=== PATIENT | male | born 1945 | race African-American/Black ===

== ENCOUNTER 2016-12-02 16:24 | Emergency (ER) | payer MEDICARE, OTHER ==
[~2016-12-02] VITALS: Ht 180.3 cm; Wt 75.0 kg
[2016-12-02 16:41] VITALS: Ht 180.3 cm; Wt 75.0 kg
[2016-12-02] MEDS ORDERED: morphine 2 MG INJ IV STA (16:43)
[2016-12-02] MEDS ORDERED: ASPIRIN 81 MG TAB PO STA (16:43)
[2016-12-02 16:53] LABS: ABNORMAL IP MESSAGE 1; BASOPHILS % 0.8 % (0.0-2.0); EOSINOPHILS # 0.2 10^3/ul (0.0-0.5); EOSINOPHILS % 4.5 % (0.0-7.0); HEMATOCRIT 40.3 % (42.0-52.0); HEMOGLOBIN 12.5 g/dl (14.0-18.0); LYMPHOCYTES # 1.5 10^3/ul (0.8-2.9); LYMPHOCYTES % 28.2 % (15.0-51.0); MEAN CORPUSCULAR HEMOGLOBIN 24.6 pg (29.0-33.0); MEAN CORPUSCULAR VOLUME 79.3 fl (82.0-101.0); MONOCYTE # 0.6 10^3/ul (0.3-0.9); MONOCYTES % 10.8 % (0.0-11.0); NEUTROPHILS % 55.5 % (39.0-77.0); PLATELET COUNT 152 10^3/UL (140-415); POSITIVE DIFF @See below; RED BLOOD COUNT 5.08 10^6/ul (4.70-6.10); RED CELL DISTRIBUTION WIDTH 12.9 % (11.5-14.5); WHITE BLOOD COUNT 5.3 10^3/ul (4.8-10.8)
[2016-12-02 17:16] LABS: INR 1.06; PROTIME 13.8 Sec (12.2-14.2); PT RATIO 1.1
[2016-12-02 17:17] LABS: PARTIAL THROMBOPLASTIN TIME 31.3 Sec (25.0-35.0)
[2016-12-02 17:20] LABS: ANION GAP 9 (8-16); BLOOD UREA NITROGEN 14 mg/dl (7-20); CALCIUM 8.8 mg/dl (8.4-10.2); CARBON DIOXIDE 31 mmol/L (21-31); CHLORIDE 97 mmol/L (97-110); GLUCOSE 85 mg/dl (70-220); POTASSIUM 4.1 mmol/L (3.5-5.1); SODIUM 133 mmol/L (135-144)
[2016-12-02 17:29] LABS: B-TYPE NATRIURETIC PEPTIDE 53 PG/ML (0-125)
--- NOTE | 2016-12-02 17:33 | RADRPT ---
PROCEDURE: XR Chest. CLINICAL INDICATION: Chest pain. TECHNIQUE: Portable AP semi - erect view of the chest was obtained. COMPARISON: None. FINDINGS: The cardiac silhouette is mildly enlarged. Rounded mass in the left upper lobe is approximately 4 x 3.6 cm concerning for primary pulmonary malignancy. Hyperinflation of the lungs and flattening of the diaphragm is compatible with chronic obstructive pulmonary disease. There is no evidence for pl eural effusion, pneumothorax or pulmonary vascular congestion. The osseous structures are intact wi th no evidence for acute abnormality. RPTAT:HJJR IMPRESSION: Left upper lobe lung mass of approximately 4 cm concerning for primary pulmonary malignancy superimp osed upon chronic obstructive pulmonary disease. Follow-up evaluation is recommended. Physician Daniele Date Time Electronically viewed and signed by Physician Daniele on 12/02/2016 17:33 /
[2016-12-02 17:38] LABS: TROPONIN-I < 0.012 ng/ml (0.00-0.12)
[2016-12-02] MEDS ORDERED: HALOPERIDOL 5 MG INJ IM ONE (18:00)
[2016-12-02] MEDS ORDERED: TYL500 PO (18:22)
--- NOTE | 2016-12-02 18:52 | ERD ---
ER Documentation Chief Complaint Date/Time DATE: 12/02/16 TIME: 18:38 Chief Complaint R90 CALLED AT ONCOLOGIST OFFICE FOR CHEST PAIN VAGUE ONSET HPI This 71-year-old male was sent to the emergency room for evaluation following a complaint of chest pain. Patient is a demented patient who has known left upper lung cancer. This was the onset of the pain was unknown. He now complains of only some mild lower back pain which she has had for years and occasional forehead pain. He suffered no trauma. He has no shortness of breath , no fevers and chills. ROS All systems reviewed and are negative except as per history of present illness. Medications Home Meds Active Scripts Acetaminophen* (Tylenol*) 500 Mg Tab, 500 MG PO Q6H Y for PAIN, #14 TAB Prov:MARIBELL INFANTE 12/02/16 PMhx/Soc History of Surgery: No (UNKNOWN) Anesthesia Reaction: No Hx Neurological Disorder: Yes (DEMENTIA) Hx Respiratory Disorders: No Hx Cardiac Disorders: Yes (HTN) Hx Psychiatric Problems: Yes (SCHIZOPHRENIA, ANXIETY) Hx Miscellaneous Medical Probl: Yes (ANEMIA) Hx Alcohol Use: No Hx Substance Use: No Hx Tobacco Use: No Smoking Status: Unknown if ever smoked Physical Exam Vitals Vital Signs Date Time Temp Pulse Resp B/P Pulse Ox O2 Delivery O2 Flow Rate FiO2 12/02/16 16:41 98.7 61 18 143/90 100 Physical Exam Const: [] Head: Atraumatic Eyes: Normal Conjunctiva ENT: Normal External Ears, Nose and Mouth. Neck: Full range of motion..~ No meningismus. Resp: Clear to auscultation bilaterally Cardio: Regular rate and rhythm, no murmurs Abd: Soft, non tender, non distended. Normal bowel sounds Skin: No petechiae or rashes Back: No midline or flank tenderness Ext: No cyanosis, or edema Neur: Awake and alert Psych: Normal Mood and Affect Result Diagram: 12/02/16 1635 12/02/16 1635 Results 24 hrs Laboratory Tests Test 12/02/16 16:35 White Blood Count 5.310^3/ul Red Blood Count 5.0810^6/ul Hemoglobin 12.5g/dl Hematocrit 40.3% Mean Corpuscular Volume 79.3fl Mean Corpuscular Hemoglobin 24.6pg Mean Corpuscular Hemoglobin Concent 31.0g/dl Red Cell Distribution Width 12.9% Platelet Count 78540^3/UL Mean Platelet Volume fl Neutrophils % 55.5% Lymphocytes % 28.2% Monocytes % 10.8% Eosinophils % 4.5% Basophils % 0.8% Nucleated Red Blood Cells % 0.0/100WBC Neutrophils # (Manual) 2.910^3/ul Lymphocytes # 1.510^3/ul Monocytes # 0.610^3/ul Eosinophils # 0.210^3/ul Basophils # 0.010^3/ul Nucleated Red Blood Cells # 0.010^3/ul Prothrombin Time 13.8Sec Prothrombin Time Ratio 1.1 INR International Normalized Ratio 1.06 Activated Partial Thromboplast Time 31.3Sec Sodium Level 133mmol/L Potassium Level 4.1mmol/L Chloride Level 97mmol/L Carbon Dioxide Level 31mmol/L Anion Gap 9 Blood Urea Nitrogen 14mg/dl Creatinine 1.00mg/dl Glucose Level 85mg/dl Calcium Level 8.8mg/dl Troponin I < 0.012ng/ml B-Type Natriuretic Peptide 53PG/ML Current Medications Medications (Trade) Dose Ordered Sig/Trevon Route PRN Reason Start Time Stop Time Status Last Admin Dose Admin Aspirin (Aspirin) 162 mg ONCE STAT PO 12/02/16 16:43 12/02/16 16:44 DC 12/02/16 17:05 Morphine Sulfate (morphine) 2 mg ONCE STAT IV 12/02/16 16:43 12/02/16 16:44 DC Haloperidol (Haldol) 5 mg ONCE ONCE IM 12/02/16 18:00 12/02/16 18:01 DC 12/02/16 18:14 Procedures/MDM Patient who is supposedly complaint of chest pain earlier. No chest pain in the ER. Patient does have dementia. Sent with paperwork that show his well- demarcated left upper lung mass which is already known. Otherwise the patient has no elevated troponin. Nonischemic EKG. Patient does have a bifascicular block with ST elevations likely secondary right bundle. I did show the EKG to her circular gang saw operator, Dr. Rucker, who agrees that there is nothing acutely concerning on the EKG. This is consistent with labs. Patient also has no signs of infection. Going to discharge him back with primary care follow-up tomorrow or the next day and strict return precautions. Patient was given aspirin and nitro prior to arrival and was given 162 mg aspirin here is also given 5 mg of Haldol for agitation which calmed him down and did not make him sleep. He is feeling well now and is been monitored in the ER for over 2-1/2 hours. EKG interpretation: Sinus bradycardia, rate of 55, first-degree AV block, bifascicular block, mild ST elevations in leads V3 and V4 that are not concerning for ischemia would likely result of a right bundle branch block, left axis deviation. Chronic monitor interpretation: Sinus bradycardia without arrhythmia Chest x-ray interpretation: Left upper lung mass, otherwise I see no acute process, no infiltrate, no pulmonary edema, no pneumothorax, no fractures. Departure Diagnosis: Primary Impression: Low back pain Additional Impressions: Chest pain Lung mass Condition: Stable Patient Instructions: Chest Pain, Uncertain Cause Additional Instructions: Call your primary care doctor TOMORROW for an appointment during the next 1-2 days. Obtain an appointment for an ECHOCARDIOGRAM. See the doctor sooner or return here if your condition worsens before your appointment time. MARIBELL INFANTE DO Dec 02, 2016 18:51
[2016-12-02] MEDS ORDERED: ACET325T33 PO (18:54)
[2016-12-02] MEDS ORDERED: RISP1TAB3 PO (18:59)
[2016-12-02] MEDS ORDERED: LAMO25TA PO (19:00)
[2016-12-02] MEDS ORDERED: MAGN400O4 PO (19:00)
[2016-12-02] MEDS ORDERED: CLON-379 PO (19:01)
[2016-12-02 19:20] VITALS: BP 149/81; PULSE 70; RESP 18; TEMP 98.7
== END 2016-12-02 19:26 | disposition home or self-care (01) ==
LOC: E/R 16:24
DX: M54.5 Low back pain (principal); R91.8 Other nonspecific abnormal finding of lung field; I10 Essential (primary) hypertension
CPT/HCPCS: 36415; 71010; 80048; 83880; 84484; 85025; 85610; 85730; 93005; 96372; 99285; J1630; J2270

== ENCOUNTER 2017-02-05 12:43 | Inpatient (IN) | payer MEDICARE, OTHER ==
[~2017-02-05] VITALS: Ht 170.2 cm; Wt 65.9 kg
[~2017-02-05 12:43] MED LIST: ACET325T33 PO; CLON-379 PO; LAMO25TA PO; MAGN400O4 PO; RISP1TAB3 PO; TYL500 PO
[2017-02-05] MEDS ORDERED: SOD CHLORIDE 0.9% 1,000 ML IV STA (13:24)
[2017-02-05] MEDS ORDERED: ALBUTEROL 0.5% (NEB) 2.5 MG/0.5 ML AMP INH STA (13:24)
[2017-02-05 14:14] LABS: BASOPHILS % 0.5 % (0.0-2.0); EOSINOPHILS # 0.3 10^3/ul (0.0-0.5); EOSINOPHILS % 5.1 % (0.0-7.0); HEMATOCRIT 42.2 % (42.0-52.0); HEMOGLOBIN 12.9 g/dl (14.0-18.0); LYMPHOCYTES # 1.8 10^3/ul (0.8-2.9); MEAN CORPUSCULAR HEMOGLOBIN 24.4 pg (29.0-33.0); MEAN CORPUSCULAR HGB CONC 30.6 g/dl (32.0-37.0); MEAN CORPUSCULAR VOLUME 79.9 fl (82.0-101.0); MEAN PLATELET VOLUME 11.6 fl (7.4-10.4); MONOCYTE # 0.7 10^3/ul (0.3-0.9); MONOCYTES % 11.4 % (0.0-11.0); NEUTROPHIL # 2.9 10^3/ul (1.6-7.5); NEUTROPHILS % 50.8 % (39.0-77.0); PLATELET COUNT 161 10^3/UL (140-415); RED BLOOD COUNT 5.28 10^6/ul (4.70-6.10); WHITE BLOOD COUNT 5.7 10^3/ul (4.8-10.8)
[2017-02-05 14:30] LABS: PROTIME 13.2 Sec (12.2-14.2)
--- NOTE | 2017-02-05 14:48 | RADRPT ---
PROCEDURE: XR Chest. CLINICAL INDICATION: Pain . TECHNIQUE: Single frontal chest x-ray. COMPARISON: 12/02/2016 FINDINGS: The lungs are clear of acute infiltrates, edema, effusions, or masses. There is a 4 cm mass seen in the left apex which appears stable since prior exam.. The cardiomediastinal silhouette is stable.. The osseous structures are intact. IMPRESSION: Stable 4 cm mass in the left apex. CT scan of the chest can be obtained if further evaluation is ind icated. RPTAT: KK .Enrique Diaz MD, MD Date Time Electronically viewed and signed by .Enrique Diaz MD, MD on 02/05/2017 14:48 .L/
[2017-02-05 14:54] LABS: ALANINE AMINOTRANSFERASE 25 IU/L (13-69); ALBUMIN 4.2 g/dl (3.3-4.9); ALBUMIN/GLOBULIN RATIO 1.07; ALKALINE PHOSPHATASE 103 IU/L (42-121); ANION GAP 11 (8-16); ASPARTATE AMINO TRANSFERASE 29 IU/L (15-46); BILIRUBIN,INDIRECT 0.3 mg/dl (0-1.1); BILIRUBIN,TOTAL 0.3 mg/dl (0.2-1.3); BLOOD UREA NITROGEN 15 mg/dl (7-20); CALCIUM 9.6 mg/dl (8.4-10.2); CARBON DIOXIDE 33 mmol/L (21-31); CHLORIDE 99 mmol/L (97-110); GLUCOSE 82 mg/dl (70-220); POTASSIUM 3.9 mmol/L (3.5-5.1); SODIUM 139 mmol/L (135-144); TOTAL PROTEIN 8.1 g/dl (6.1-8.1)
[2017-02-05 15:05] LABS: TROPONIN-I < 0.012 ng/ml (0.00-0.12)
--- NOTE | 2017-02-05 15:26 | ERD ---
ER Documentation Chief Complaint Chief Complaint PT BIB ambulance from [facility] for evaluation unspecified Lung Mass. HPI 71-year-old man [facility] for recent hemoptysis, he does have a CT scan verified left lung spiculated mass carcinoma. It seems hemoptysis is a new symptom. He also has a history of anxiety and psychiatric illness. He has had no fevers or chills, no vomiting or diarrhea, no blood per rectum or melena. Patient denies shortness of breath. ROS All systems reviewed and are negative except as per history of present illness. Medications Home Meds Active Scripts Acetaminophen* (Tylenol*) 500 Mg Tab, 500 MG PO Q6H Y for PAIN, #14 TAB Prov:MARIBELL INFANTE DO 12/02/16 Reported Medications Clonidine Hcl* (Clonidine Hcl*) 0.1 Mg Tab, 0.1 MG PO Q6, TAB 12/02/16 Lamotrigine* (Lamotrigine*) 25 Mg Tablet, 25 MG PO QHS, TAB 12/02/16 Magnesium Hydroxide* (Milk Of Magnesia*) 400 Mg/5 Ml Oral.susp, 30 ML PO Q24H Y for PRN, ML 12/02/16 Risperidone* (Risperidone*) 1 Mg Tablet, 1 MG PO Q12H, TAB 12/02/16 Acetaminophen* (Tylenol*) 325 Mg Tablet, 650 MG PO Q4H Y for MILD PAIN LEVEL 1-3 , TAB AND FEVER 12/02/16 Allergies Allergies: Coded Allergies: No Known Allergy (Unverified , 02/05/17) PMhx/Soc Psychiatric illness, hypertension, lung carcinoma, COPD? History of Surgery: No (UNKNOWN) Anesthesia Reaction: No Hx Neurological Disorder: Yes (DEMENTIA) Hx Respiratory Disorders: No Hx Cardiac Disorders: Yes (HTN) Hx Psychiatric Problems: Yes (SCHIZOPHRENIA, ANXIETY) Hx Miscellaneous Medical Probl: Yes (ANEMIA) Hx Alcohol Use: No Hx Substance Use: No Hx Tobacco Use: No Smoking Status: Never smoker FmHx Family History: No diabetes Physical Exam Vitals Vital Signs Date Time Temp Pulse Resp B/P Pulse Ox O2 Delivery O2 Flow Rate FiO2 02/05/17 13:37 80 18 96 21 02/05/17 12:58 98.1 78 20 159/89 96 Physical Exam GENERAL: Well-developed, well-nourished, agitated HEENT: Moist mucous membranes, pink conjunctiva, no cervical spine tenderness or step-off deformities, no goiter, no jaundice or icterus, extraocular movements intact without pain. No submandibular induration, and no pharyngeal erythema NEURO: Alert and oriented 3, cranial nerves II through XII intact bilaterally, pupils equal round reactive to light, no focal deficits or facial asymmetry, sensation intact distally Strength 5/5 in upper and lower extremities bilaterally CARDIAC: Regular rate and rhythm, no murmurs rubs or gallops LUNGS: Clear bilaterally no wheezing crackles or stridor ABDOMEN: Soft nontender, no guarding, no rigidity, no rebound, no psoas sign no obturator sign. Normoactive bowel sounds SKIN: Warm and dry to touch, no abrasions, contusions, or hematomas, no lacerations, no ecchymosis, no target lesions, and without ulcers EXTREMITIES: No clubbing cyanosis or edema, calves are bilaterally symmetrical, no Homans sign, no popliteal cord sign. Distal pulses equal and bilateral PSYCH: Agitated Result Diagram: 02/05/17 1400 02/05/17 1400 Results 24 hrs Laboratory Tests Test 02/05/17 14:00 White Blood Count 5.710^3/ul Red Blood Count 5.2810^6/ul Hemoglobin 12.9g/dl Hematocrit 42.2% Mean Corpuscular Volume 79.9fl Mean Corpuscular Hemoglobin 24.4pg Mean Corpuscular Hemoglobin Concent 30.6g/dl Red Cell Distribution Width 13.0% Platelet Count 07953^3/UL Mean Platelet Volume 11.6fl Neutrophils % 50.8% Lymphocytes % 32.0% Monocytes % 11.4% Eosinophils % 5.1% Basophils % 0.5% Nucleated Red Blood Cells % 0.0/100WBC Neutrophils # 2.910^3/ul Lymphocytes # 1.810^3/ul Monocytes # 0.710^3/ul Eosinophils # 0.310^3/ul Basophils # 0.010^3/ul Nucleated Red Blood Cells # 0.010^3/ul Prothrombin Time 13.2Sec Prothrombin Time Ratio 1.0 INR International Normalized Ratio 1.00 Sodium Level 139mmol/L Potassium Level 3.9mmol/L Chloride Level 99mmol/L Carbon Dioxide Level 33mmol/L Anion Gap 11 Blood Urea Nitrogen 15mg/dl Creatinine 1.00mg/dl Glucose Level 82mg/dl Calcium Level 9.6mg/dl Total Bilirubin 0.3mg/dl Direct Bilirubin 0.00mg/dl Indirect Bilirubin 0.3mg/dl Aspartate Amino Transf (AST/SGOT) 29IU/L Alanine Aminotransferase (ALT/SGPT) 25IU/L Alkaline Phosphatase 103IU/L Troponin I < 0.012ng/ml Total Protein 8.1g/dl Albumin 4.2g/dl Globulin 3.90g/dl Albumin/Globulin Ratio 1.07 Lipase 232U/L Current Medications Medications (Trade) Dose Ordered Sig/Trevon Route PRN Reason Start Time Stop Time Status Last Admin Dose Admin Sodium Chloride (NS) 1,000 ml @ 1,000 mls/hr Q1H STAT IV 02/05/17 13:24 02/05/17 14:23 DC 02/05/17 13:24 Albuterol (Proventil 0.5% (Neb)) 5 mg ONCE STAT INH 02/05/17 13:24 02/05/17 13:26 DC 02/05/17 13:34 Lorazepam (Ativan) 2 mg ONCE ONCE IV 02/05/17 15:30 02/05/17 15:31 DC 02/05/17 15:30 Acetaminophen (Tylenol Tab) 650 mg Q4H PRN PO MILD PAIN LEVEL 1-3 02/05/17 16:00 Clonidine (Catapres) 0.1 mg Q6 PO 02/05/17 18:00 Lamotrigine (Lamictal) 25 mg QHS PO 02/05/17 21:00 Magnesium Hydroxide (Milk Of Mag) 30 ml Q24H PRN PO PRN 02/05/17 16:00 Risperidone (Risperdal) 1 mg Q12H PO 02/05/17 16:00 02/05/17 16:51 Procedures/MDM IV line was established patient was placed on cardiac cath lab manager rhythm strip revealed a sinus rhythm at about 60 bpm with upright P and T waves. Patient was afebrile. EKG performed, read by me revealed a normal sinus rhythm at 64 bpm, left axis deviation, right bundle branch block, first-degree atrial ventricular block, no concerning ST elevations or depressions noted. One view chest x-ray performed, read by me there is a left upper lobe mass consistent with previous CT imaging and lung carcinoma. No acute infiltrates, no pneumothorax. I administered 1 L normal saline intravenously for dehydration and lorazepam 1 mg IV for anxiety and agitation. Patient was also given albuterol 5 mg via nebulizer for recent hemoptysis. CBC was normal, electrolytes normal, liver function tests normal, troponin negative. I spoke to Dr. Pham who was on-call for the patient's PMD, he agreed to admission and continued workup with shipyard painter apprentice oncologist and pulmonology. Further imaging deferred to admitting team Differential diagnoses considered, included but not limited to acute coronary syndrome, pulmonary embolism, aortic dissection, abdominal aortic aneurysm, sepsis, stroke, meningitis, encephalitis, pneumonia, appendicitis, cholecystitis , bowel obstruction, pyelonephritis, nephrolithiasis, cystitis, as well as metabolic, hematologic, and electrolyte abnormalities. As well as abscess, cellulitis, fractures, and dislocations. Patient feels much better at this time, and vital signs are normal, symptoms have improved. I did give strict instructions to return to the ED if symptoms continue or worsen, patient will otherwise follow-up with primary care physician. Patient understood instructions and agreed to plan. Disclaimer: Inadvertent spelling and grammatical errors are likely due to EHR/ dictation software use and do not reflect on the overall quality of patient care. Also, please note that the electronic time recorded on this note does not necessarily reflect the actual time of the patient encounter. Departure Diagnosis: Primary Impression: Hemoptysis Additional Impression: Lung cancer Laterality: left Lung location: upper lobe of lung Qualified Code: C34.12 - Malignant neoplasm of upper lobe of left lung Condition: SARIAH Leo MD Feb 05, 2017 15:26
[2017-02-05] MEDS ORDERED: LORAZEPAM 2 MG INJ IV ONE (15:30)
[2017-02-05] MEDS ORDERED: ACETAMINOPHEN 325 MG TAB PO PRN (16:00)
[2017-02-05] MEDS ORDERED: MAGNESIUM HYDROXIDE 30ML CUP PO PRN (16:00)
[2017-02-05] MEDS: RISPERIDONE 1 MG TAB PO SCH (16:51)
[2017-02-05 21:00] VITALS: Ht 170.2 cm; Wt 65.9 kg
[2017-02-05] MEDS ORDERED: LAMOTRIGINE 25 MG TAB PO SCH (21:00)
[2017-02-05 21:22] VITALS: PULSE 71
[2017-02-05 22:28] VITALS: PULSE 55
[2017-02-05 23:30] VITALS: BP 158/83; PULSE 54; RESP 19
[2017-02-06 00:32] VITALS: PULSE 50
[2017-02-06 08:56] LABS: BASOPHILS % 0.7 % (0.0-2.0); EOSINOPHILS # 0.2 10^3/ul (0.0-0.5); EOSINOPHILS % 5.3 % (0.0-7.0); HEMOGLOBIN 13.3 g/dl (14.0-18.0); LYMPHOCYTES # 1.3 10^3/ul (0.8-2.9); LYMPHOCYTES % 27.5 % (15.0-51.0); MEAN CORPUSCULAR HEMOGLOBIN 24.4 pg (29.0-33.0); MEAN CORPUSCULAR HGB CONC 30.2 g/dl (32.0-37.0); MEAN CORPUSCULAR VOLUME 80.6 fl (82.0-101.0); MEAN PLATELET VOLUME 12.8 fl (7.4-10.4); MONOCYTE # 0.5 10^3/ul (0.3-0.9); MONOCYTES % 11.2 % (0.0-11.0); NEUTROPHIL # 2.5 10^3/ul (1.6-7.5); NEUTROPHILS % 55.1 % (39.0-77.0); PLATELET COUNT 186 10^3/UL (140-415); RED BLOOD COUNT 5.46 10^6/ul (4.70-6.10); WHITE BLOOD COUNT 4.5 10^3/ul (4.8-10.8)
[2017-02-06 09:14] LABS: CALCIUM 9.4 mg/dl (8.4-10.2); CREATININE 0.83 mg/dl (0.61-1.24); PHOSPHORUS 3.4 mg/dl (2.5-4.9); POTASSIUM 4.2 mmol/L (3.5-5.1)
[2017-02-06] MEDS: RISPERIDONE 1 MG TAB PO SCH (09:33)
--- NOTE | 2017-02-06 10:13 | HP ---
DATE OF ADMISSION: 02/05/2017 CHIEF COMPLAINT: Hemoptysis. HISTORY OF PRESENT ILLNESS: This is a 71-year-old male with a past medical history of lung mass, po ssibly with presumed lung carcinoma, history of COPD, history of psychiatric illness, history of dem entia, history of schizophrenia, anxiety, hypertension, anemia, who presents to [facility] for episodes of hemoptysis. The patient was reported at his nursing facility after having hemoptysis. As a result, he was transferred to [facility] ER. Upon arrival, the patient h ad a chest x-ray which showed findings of a stable 4 cm mass in the left apex. The patient had labo ratory data drawn was subsequently admitted to telemetry for evaluation. On telemetry, the patient noted to have an episode of AV block first degree. Upon my evaluation of the patient at this time, he is currently alert and oriented to name and locat ion. The patient denies any further episodes of hemoptysis. Denies any nausea, vomiting, any short ness of breath. PAST MEDICAL HISTORY: As stated above, history of lung carcinoma, hypertension, psychiatric illness , schizophrenia, anemia, dementia. FAMILY HISTORY: Noncontributory. SOCIAL HISTORY: Lives at a half-way facility. ALLERGIES: UNKNOWN. MEDICATIONS: The patient's medications have been reviewed and reconciled. PAST SURGICAL HISTORY: None. REVIEW OF SYSTEMS: A 14-point review of systems was conducted. Pertinent positives stated in HPI, otherwise negative. PHYSICAL EXAMINATION: VITAL SIGNS: Blood pressure is 158/83, respiration 19, pulse 54, temperature 97.6. HEENT: Head is normocephalic. NECK: Supple. HEART: Regular rate, bradycardic. LUNGS: Show diminished breath sounds at base. ABDOMEN: Soft, nontender to palpation. No rebound or guarding. EXTREMITIES: Negative for clubbing, cyanosis, no edema. DERMATOLOGIC: No rashes. MUSCULOSKELETAL: No joint effusions. NEUROLOGIC: No obvious focal deficits. LABORATORY DATA: Shows white count 5.7, hemoglobin 12.9, hematocrit 42.2, platelet count is 161. S odium 139, potassium 3.9, BUN 15, creatinine 1.0. ASSESSMENT AND PLAN: This is a 71-year-old male who presents with: 1. Lung mass, presumed lung cancer. Patient's chest x-ray shows 4 cm mass. The patient's previous CT scan and MRI also showed a lung mass. Plan at this point is to place a pulmonary consult for ev aluation and oncology consult. Will monitor closely. 2. Hemoptysis. Etiology is unclear, possibly from lung mass. The patient had no further episodes. Continue to monitor. Follow up with pulmonary. 3. Hypertension. Continue current blood pressure regimen. 4. Tachycardia with an AV block. Place a cardiology consult for evaluation. 5. Psychosis with history of dementia, psychiatric illness. Continue Ativan and Risperdal. 6. Hypertension. Continue clonidine. 7. Gastrointestinal and deep venous thrombosis prophylaxis, we will place the patient on proton pum p inhibitor and sequential leg squeezers. 8. Anemia. Continue to monitor hemoglobin and hematocrit levels. Please note I spent up to 30 minutes of face to face time with the patient. The patient is FULL COD E. Dictated By: TANA CAMPUZANO DO NR/JOSE Conf#: [id number] DID#: [id number]
--- NOTE | 2017-02-06 10:37 | CONS ---
Date/Time of Note Date/Time of Note DATE: 02/06/17 TIME: 10:33 Assessment/Plan Assessment/Plan Additional Assessment/Plan Chest x-ray showing the left upper lobe lung mass. Assessment and recommendations; 1. Patient admitted with hemoptysis with left upper lobe lung mass. 2. Hoarseness, possibly involvement of recurrent laryngeal nerve. Continue current supportive care. Obtain CT chest without contrast. Further recommendations to be done once CT imaging is done. Consultation Date/Type/Reason Admit Date/Time Feb 05, 2017 at 15:38 Date of Consultation: Feb 06, 2017 Type of Consultation: Pulmonary consult Reason for Consultation Pulmonary consult obtained for evaluation of left upper lobe lung mass and hemoptysis. History of presenting illness; patient is a pleasant 71-year-old male who came into the emergency room with complaints of hemoptysis going on for the last few days. Patient also been complaining of hoarseness for the last several weeks. Patient denies any shortness of breath, coughing, chest pain. Also denies any weight loss. Denies any recent nausea vomiting. Past medical history; essentially unremarkable. Patient apparently has a diagnosis of lung mass, has not had any workup done so far apparently. Medications; reviewed. Social history; patient never smoked. Family history; patient is single, he does not have any children. Occupation history; patient used to work in a bank. Review of systems; denies any headache, seizures. Any visual changes. Sinus symptoms. Any sore throat. Denies any dysphagia. Complains of hoarseness. Denies any chest pain. Complains of hemoptysis off and on. Denies any abdominal pain, nausea vomiting. Any weight loss. Any skin changes. Any orthopnea. Any edema. Also denies any melena or hematochezia. Denies any urinary symptoms. General exam; elderly male, awake alert, currently in no distress. Patient is quite hoarse. Social History Smoking Status: Never smoker Exam/Review of Systems Vital Signs Vitals Vital Signs Date Time Temp Pulse Resp B/P Pulse Ox O2 Delivery O2 Flow Rate FiO2 02/06/17 00:32 50 02/05/17 23:30 97.6 19 158/83 96 Room Air 02/05/17 13:37 21 Intake and Output 02/05/17 02/05/17 02/06/17 15:00 23:00 07:00 Intake Total 80 ml Balance 80 ml Exam HEENT exam; supple neck, no JVD. No lymphadenopathy. Midline trachea. No thyromegaly. Pharynx is clear. No neck masses. Patient has multiple carious teeth. Bilateral intraocular lens implants are present. Chest exam; clear to auscultation. S1-S2 audible, no murmurs. Regular rhythm. Abdomen exam; soft, nondistended. Nontender. No organomegaly. Bowel sounds audible. Extremity exam; no peripheral edema. No clubbing. Pulses 1+ bilaterally. LOCAL BULK DRIVER exam; no focal motor deficit. Results Result Diagram: 02/06/17 0812 02/06/17 0812 Results 24 hrs Laboratory Tests Test 02/05/17 14:00 02/06/17 08:12 White Blood Count 5.7 4.5 #L Red Blood Count 5.28 5.46 Hemoglobin 12.9 L 13.3 L Hematocrit 42.2 44.0 Mean Corpuscular Volume 79.9 L 80.6 L Mean Corpuscular Hemoglobin 24.4 L 24.4 L Mean Corpuscular Hemoglobin Concent 30.6 L 30.2 L Red Cell Distribution Width 13.0 13.0 Platelet Count 161 186 Mean Platelet Volume 11.6 H 12.8 H Neutrophils % 50.8 55.1 Lymphocytes % 32.0 27.5 Monocytes % 11.4 H 11.2 H Eosinophils % 5.1 5.3 Basophils % 0.5 0.7 Nucleated Red Blood Cells % 0.0 0.0 Neutrophils # 2.9 2.5 Lymphocytes # 1.8 1.3 Monocytes # 0.7 0.5 Eosinophils # 0.3 0.2 Basophils # 0.0 0.0 Nucleated Red Blood Cells # 0.0 0.0 Prothrombin Time 13.2 Prothrombin Time Ratio 1.0 INR International Normalized Ratio 1.00 Sodium Level 139 138 Potassium Level 3.9 4.2 Chloride Level 99 101 Carbon Dioxide Level 33 H 32 H Anion Gap 11 9 Blood Urea Nitrogen 15 13 Creatinine 1.00 0.83 Glucose Level 82 79 Calcium Level 9.6 9.4 Total Bilirubin 0.3 Direct Bilirubin 0.00 Indirect Bilirubin 0.3 Aspartate Amino Transf (AST/SGOT) 29 Alanine Aminotransferase (ALT/SGPT) 25 Alkaline Phosphatase 103 Troponin I < 0.012 Total Protein 8.1 Albumin 4.2 Globulin 3.90 H Albumin/Globulin Ratio 1.07 Lipase 232 Phosphorus Level 3.4 Magnesium Level 2.0 Medications Medications Current Medications Acetaminophen (Tylenol Tab) 650 mg Q4H PRN PO MILD PAIN LEVEL 1-3; Start 02/05 at 16:00 Clonidine (Catapres) 0.1 mg Q6 PO Last administered on 02/06/17 08:08; Admin Dose 0.1 MG; Start 02/05/17 at 18:00 Lamotrigine (Lamictal) 25 mg QHS PO Last administered on 02/05/17 01:00; Admin Dose 25 MG; Start 02/05/17 at 21:00 Magnesium Hydroxide (Milk Of Mag) 30 ml Q24H PRN PO PRN; Start 02/05/17 at 16: 00 Risperidone (Risperdal) 1 mg Q12H PO Last administered on 02/05/17 16:51; Admin Dose 1 MG; Start 02/05/17 at 16:00 [place] Feb 06, 2017 10:37
--- NOTE | 2017-02-06 18:06 | CONS ---
Date/Time of Note Date/Time of Note DATE: 02/06/17 TIME: 12:05 VK INDER Assessment/Plan Assessment/Plan Chief Complaint/Hosp Course ASSESSMENT AND PLAN: This is a 71-year-old male who presents with: 1. Lung mass, presumed lung cancer. Patient's chest x-ray shows 4 cm mass. The patient's previous CT scan and MRI also showed a lung mass. pulmonary consult BX MASS 2. Hemoptysis. Etiology possibly from lung mass. The patient had no further episodes. Continue to monitor. 3. HTN 4. Tachycardia with an AV block. 5. Psychosis with history of dementia, psychiatric illness. 6. Hypertension. 7. Gastrointestinal and deep venous thrombosis prophylaxis, we will place the patient on proton pump inhibitor and sequential leg squeezers. 8. Anemia. Continue to monitor hemoglobin and hematocrit levels. Problems: Consultation Date/Type/Reason Admit Date/Time Feb 05, 2017 at 15:38 Date of Consultation: Feb 06, 2017 Type of Consultation: hemeonc Reason for Consultation lung mass Referring Provider: TANA CAMPUZANO of Present Illness This is a 71-year-old male with a past medical history of lung mass, possibly with presumed lung carcinoma, history of COPD, history of psychiatric illness, history of dementia, history of schizophrenia, anxiety, hypertension, anemia, who presents to [facility] for episodes of hemoptysis. The patient was reported at his nursing facility after having hemoptysis. As a result, he was transferred to [facility] ER. Upon arrival, the patient had a chest x-ray which showed findings of a stable 4 cm mass in the left apex. The patient had laboratory data drawn was subsequently admitted to telemetry for evaluation. On telemetry, the patient noted to have an episode of AV block first degree. Upon my evaluation of the patient at this time, he is currently alert and oriented to name and location. The patient denies any further episodes of hemoptysis. Denies any nausea, vomiting, any shortness of breath. I WAS ASKED TO PROVIDE HEMEON CONSULT PAST MEDICAL HISTORY: As stated above, history of lung carcinoma, hypertension , psychiatric illness, schizophrenia, anemia, dementia. FAMILY HISTORY: Noncontributory. SOCIAL HISTORY: Lives at a alf facility. ALLERGIES: UNKNOWN. MEDICATIONS: The patient's medications have been reviewed and reconciled. PAST SURGICAL HISTORY: None. REVIEW OF SYSTEMS: A 14-point review of systems was conducted. Pertinent positives stated in HPI, otherwise negative. Social History Smoking Status: Never smoker Exam/Review of Systems Vital Signs Vitals Vital Signs Date Time Temp Pulse Resp B/P Pulse Ox O2 Delivery O2 Flow Rate FiO2 02/06/17 00:32 50 02/05/17 23:30 97.6 19 158/83 96 Room Air 02/05/17 13:37 21 Intake and Output 02/05/17 02/05/17 02/06/17 15:00 23:00 07:00 Intake Total 80 ml Balance 80 ml Exam PHYSICAL EXAMINATION: HEENT: Head is normocephalic. NECK: Supple. HEART: Regular rate, bradycardic. LUNGS: Show diminished breath sounds at base. ABDOMEN: Soft, nontender to palpation. No rebound or guarding. EXTREMITIES: Negative for clubbing, cyanosis, no edema. DERMATOLOGIC: No rashes. MUSCULOSKELETAL: No joint effusions. NEUROLOGIC: No obvious focal deficits. NO PATH LN- QUE Results Result Diagram: 02/06/17 0812 02/06/17 0812 Results 24 hrs Laboratory Tests Test 02/06/17 08:12 White Blood Count 4.5 #L Red Blood Count 5.46 Hemoglobin 13.3 L Hematocrit 44.0 Mean Corpuscular Volume 80.6 L Mean Corpuscular Hemoglobin 24.4 L Mean Corpuscular Hemoglobin Concent 30.2 L Red Cell Distribution Width 13.0 Platelet Count 186 Mean Platelet Volume 12.8 H Neutrophils % 55.1 Lymphocytes % 27.5 Monocytes % 11.2 H Eosinophils % 5.3 Basophils % 0.7 Nucleated Red Blood Cells % 0.0 Neutrophils # 2.5 Lymphocytes # 1.3 Monocytes # 0.5 Eosinophils # 0.2 Basophils # 0.0 Nucleated Red Blood Cells # 0.0 Sodium Level 138 Potassium Level 4.2 Chloride Level 101 Carbon Dioxide Level 32 H Anion Gap 9 Blood Urea Nitrogen 13 Creatinine 0.83 Glucose Level 79 Calcium Level 9.4 Phosphorus Level 3.4 Magnesium Level 2.0 MIGDALIA SOFIA MD Feb 06, 2017 18:06
== END 2017-02-06 12:40 | DRG 181 ==
LOC: E/R 12:43 → MS4 15:38
PROVIDERS: ADMIT Internal Medicine; ATTEND Internal Medicine
DX: C34.92 Malignant neoplasm of unspecified part of left bronchus or lung (principal); R04.2 Hemoptysis; D64.9 Anemia, unspecified; I10 Essential (primary) hypertension; F29 Unspecified psychosis not due to a substance or known physiological condition; R00.0 Tachycardia, unspecified; R49.0 Dysphonia
CPT/HCPCS: 36415; 71010; 80048; 80053; 83690; 83735; 84100; 84484; 85025; 85610; 87040; 87070; 93005; 94644; 96374; J2060; J7030